=== PATIENT | male | born 1975 | race African-American/Black ===

== ENCOUNTER 2020-10-25 18:09 | Emergency (ER) | payer MEDICAID ==
[~2020-10-25] VITALS: Ht 188 cm; Wt 90.7 kg
[~2020-10-25 18:09] MED LIST: ACET-8386 PO; AMIT10TA36 PO
--- NOTE | 2020-10-25 18:09 | NUR ---
Patient wheelchair assisted to bed 8.
[2020-10-25] MEDS ORDERED: fentaNYL citrate 0.05 MG/ML VIAL IVP ONE (18:15)
[2020-10-25] MEDS ORDERED: LORazepam 2 MG/ML VIAL IVP ONE (18:20)
[2020-10-25 18:35] LABS: BASOPHILS % (AUTO) 0.4 % (0.0-2.0); EOSINOPHILS # (AUTO) 0.1 K/uL (0-0.4); EOSINOPHILS % (AUTO) 1.6 % (0.0-4.0); HEMATOCRIT 39.8 % (36-52); HEMOGLOBIN 13.4 g/dL (12.0-18.0); LYMPHOCYTES # (AUTO) 1.7 K/uL (2.0-11.5); MEAN CORPUSCULAR HEMOGLOBIN 30 pg (27-31); MEAN CORPUSCULAR HGB CONC 34 g/dL (33-37); MEAN CORPUSCULAR VOLUME 89.3 fL (80-94); MONOCYTES # (AUTO) 0.4 K/uL (0.8-1.0); MONOCYTES % (AUTO) 9.3 % (1.7-9.3); NEUTROPHILS # (AUTO) 2.5 K/uL (1.8-7.7); NEUTROPHILS % (AUTO) 52.7 % (42.2-75.2); PLATELET COUNT (AUTO) 227 K/uL (140-450); RED BLOOD CELL COUNT(AUTO) 4.45 MIL/uL (4.20-6.10); RED CELL DISTRIBUTION WIDTH 13.4 % (11.6-13.7); WHITE BLOOD COUNT (AUTO) 4.8 K/uL (4.8-10.8)
--- NOTE | 2020-10-25 18:40 | NUR ---
xray at the bedside; per proof technician, will come back when pt's labs are back.
--- NOTE | 2020-10-25 18:46 | NUR ---
45 y/o male BIB partner c/o right wrist and chest pain s/p unwitnessed fall approximately and hour ago. Patient fell from one story house. Patient is agitated and not willing to answer assessment questions. PMH: DM, ASTHMA NKA
[2020-10-25 18:49] LABS: ALBUMIN 3.8 g/dL (3.4-5.0); ANION GAP 10.2 (8-16); CARBON DIOXIDE 27.2 mmol/L (21-32); CREATININE 1.2 mg/dL (0.6-1.3); POTASSIUM 3.4 mmol/L (3.5-5.1); TOTAL BILIRUBIN 0.2 mg/dL (0.0-1.0)
[2020-10-25] MEDS ORDERED: PROPOFOL 200 MG/20 ML VIAL IV ONE (18:50)
--- NOTE | 2020-10-25 18:57 | NUR ---
Per Dr. Messina take patient to CT w/o lab results. e d tech took patient to CT by CT via poornima w/ family.
--- NOTE | 2020-10-25 19:11 | NUR ---
Report given to STEVAN Clemens for continuation of care.
--- NOTE | 2020-10-25 19:30 | NUR ---
VERBAL CONSENT GIVEN FOR PROCEDURE. PATIENT UNABLE TO SIGN DUE TO INJURY. RN, QC SCIENTIST, MD WITNESSED AT BEDSIDE.
[2020-10-25] MEDS ORDERED: NACL 0.9% 1,000 ML IV ONE (19:35)
--- NOTE | 2020-10-25 19:57 | NUR ---
STARTED CONSCIOUS SEDATION. MD, RN, RT, EMT AT BEDSIDE. VSS STABLE. PT VERIFICATION AND CONSENT SIGNED PRIOR.
--- NOTE | 2020-10-25 20:05 | NUR ---
SPLINT APPLIED DURING PROCEDURE. VS STABLE AT THIS TIME. WILL CONTINUE TO MONITOR.
--- NOTE | 2020-10-25 20:20 | NUR ---
RADIOLOGY AT BEDSIDE
--- NOTE | 2020-10-25 20:45 | NUR ---
PT AWAKE AND URINATED ON URINAL. NO REQUESTS AT THIS TIME. VS STABLE.
[2020-10-25] MEDS ORDERED: NAPR-54 PO (22:31)
--- NOTE | 2020-10-25 22:59 | NUR ---
CALLED PT SIGNIFICANT OTHER X3 WITH NO ANSWER. PRIMARY RN MADE AWARE.
--- NOTE | 2020-10-26 00:49 | NUR ---
pt awake and assited in ambulating to bathroom and back to bed. vss
[2020-10-26 00:58] VITALS: BP 151/91
--- NOTE | 2020-10-26 00:58 | NUR ---
Patient discharged with v/s stable. Written and verbal after care instructions given and explained. Patient alert, oriented and verbalized understanding of instructions. Ambulatory with to car. All questions addressed prior to discharge. ID band and IV access removed. Patient advised to follow up with PMD. Rx of Naprosyn given. Patient educated on indication of medication including possible reaction and side effects. Opportunity to ask questions provided and answered.
== END 2020-10-26 00:58 | disposition home or self-care (01) ==
LOC: MED 18:09
DX: S52.501A Unspecified fracture of the lower end of right radius, initial encounter for closed fracture (principal); S52.611A Displaced fracture of right ulna styloid process, initial encounter for closed fracture; S06.0X0A Concussion without loss of consciousness, initial encounter; F15.90 Other stimulant use, unspecified, uncomplicated; M54.2 Cervicalgia; R07.89 Other chest pain; J45.909 Unspecified asthma, uncomplicated; E11.9 Type 2 diabetes mellitus without complications; F17.210 Nicotine dependence, cigarettes, uncomplicated; Z98.890 Other specified postprocedural states; Z79.891 Long term (current) use of opiate analgesic; Z79.899 Other long term (current) drug therapy; W13.2XXA Fall from, out of or through roof, initial encounter; Y92.89 Other specified places as the place of occurrence of the external cause; Y93.89 Activity, other specified; Y99.8 Other external cause status
CPT/HCPCS: 25605; 36415; 70450; 71045; 71260; 72125; 73090; 73110; 74177; 80053; 84484; 85025; 93005; 96361; 96374; 99152; 99291; G0482; J2060; J2704; J7030; Q9967; J3010